=== PATIENT | female | born 1995 | race Caucasian/White ===

== ENCOUNTER 2017-04-12 08:22 | Day surgery (SDC) | payer BC, MEDICAID ==
[~2017-04-12 08:22] MED LIST: Acetaminophen TAB* 325 MG PO ONE; Buffered Lidocaine 0.9% SYRIN* 5 ML/SYR SYRINGE INTRADERM ONE; Dexamethasone IV* 4 MG/ML 1 ML (4 MG) IV SLOW PU ONE; Famotidine IV* 10 MG/ML 2 ML (20 mg) IV ONE; Scopolamine 1.5 mg* PATCH TRANSDERM ONE
[2017-04-12] MEDS ORDERED: Dexamethasone IV* 4 MG/ML 1 ML (4 MG) ONE (08:33)
[2017-04-12] MEDS ORDERED: Acetaminophen TAB* 325 MG ONE (08:33)
[2017-04-12] MEDS ORDERED: Scopolamine 1.5 mg* PATCH ONE (08:33)
[2017-04-12] MEDS ORDERED: Famotidine IV* 10 MG/ML 2 ML (20 mg) ONE (08:33)
[2017-04-12] MEDS ORDERED: Buffered Lidocaine 0.9% SYRIN* 5 ML/SYR SYRINGE ONE (08:33)
[2017-04-12] MEDS ORDERED: fentaNYL* 50 MCG/ML 2 ML VIAL (100 MCG VIAL) ONE (09:02)
[2017-04-12] MEDS ORDERED: Midazolam* 1 MG/ML 2 ML VIAL (2 MG) ONE (09:02)
[2017-04-12] MEDS ORDERED: Lidocaine 2% PF * 5 ML VIAL ONE (09:09)
[2017-04-12] MEDS ORDERED: Propofol* 10 MG/ML 20 ML BTL IV PUSH ONE (09:09)
[2017-04-12] MEDS ORDERED: Bacitracin OINTMENT* 1 TUBE ONE (10:42)
[2017-04-12] MEDS ORDERED: Oxymetazoline 0.05% NASAL SPR* 15 ML BTL ONE (10:42)
[2017-04-12] MEDS ORDERED: Lidocaine 1% MPF wEPI 200,000* 30 ML SDV ONE (10:42)
[2017-04-12] MEDS ORDERED: Lidocaine 4% TOPICAL* 50 ML TOP.SOLN ONE (10:42)
[2017-04-12] MEDS ORDERED: Ondansetron INJ* 2 MG/ML VIAL ONE (11:54)
[2017-04-12 12:41] VITALS: BP 129/68
--- NOTE | 2017-04-13 06:16 | OP ---
DATE OF OPERATION: 04/12/17 - [facility] DATE OF : 89 SURGEON: Matthew Taylor MD ANESTHESIOLOGIST: Polina Ramirez MD ANESTHESIA: General PRE-OP DIAGNOSIS: Septal deviation, turbinate hypertrophy. POST-OP DIAGNOSIS: Septal deviation, turbinate hypertrophy. OPERATIVE PROCEDURE: Nasal septoplasty and inferior turbinate reduction with outfracture. The debrider was used for the turbinate reductions performed in the submucosal plane. SPECIMENS: None. BLOOD LOSS: Minimal. DESCRIPTION OF PROCEDURE: The patient was taken to the operating room, placed in the supine position on the operating table, maintained with laryngeal mask airway anesthesia. Her nose was packed bilaterally with cottonoids impregnated with oxymetazoline and 4% lidocaine and then she was draped for the surgery. The packs were removed. She has a severe septal deviation to the right side with it touching the right inferior turbinate. The septum and inferior turbinates were injected with 1% lidocaine, 1:200,000 epinephrine. Hemitransfixion incision was made in the left anterior septum. Mucoperichondrial flap was raised. Bony cartilaginous junction opened. Contralateral posterior flap was raised. The freer knife was used to remove the cartilage posterior inferiorly. A big window was taken out where it was deviated. The spurring from the bony septum was removed and a buckle anteriorly in the anterior cartilage was opened and then trimmed, so they laid flat. The large piece of cartilage I removed was morselized, straightened and placed back into the mucoperichondrial pocket. Hemitransfixion incision was closed with 4-0 chromic and then a 4-0 gut quilting stitch was placed. Incisions were made in the anterior, inferior turbinates. The pockets were raised over the bone. The debrider was inserted. The submucosa was debrided and these were outfractured. Magnetic splints were smeared with bacitracin were placed into the nostrils and then sutured in place with a Prolene. The patient tolerated this well. No complications. Transferred to recovery in stable condition. [id number]/[facility] #: [id number] MTDD
[2017-04-15] MEDS ORDERED: Scopolamine PATCH Remove* 1 NOTE MISC PATCH OFF ONE (06:00)
== END 2017-04-12 13:10 | disposition home or self-care (01) ==
LOC: OR 08:22
PROVIDERS: ATTEND Otolaryngology
DX: J34.2 Deviated nasal septum (principal); J34.3 Hypertrophy of nasal turbinates; R09.81 Nasal congestion
CPT/HCPCS: 81025; A9270-GY; J1100; J2001; J2250; J2405; J2704; J3010

== ENCOUNTER 2018-04-16 10:32 | Emergency (ER) | payer BC, MEDICAID ==
[2018-04-16 13:55] VITALS: BP 133/75
--- NOTE | 2018-04-16 13:57 | UC ---
Throat Pain/Nasal Bryan HPI - HPI Summary HPI Summary: 23 y/o female presents to the urgent care c/o sore throat and fever since Saturday04/14/2018. Pain w/ swallowing is 8/10 associated w/ B/L ear pain and mild nasal congestion w/ clear discharge. Pt took Advil PO around 1300pm to alleviate symptoms. Pt denies fever, SOB, chest pain, rash, abdominal pain, N/V/ D. He as decrease appetite, but she has been drinking fluids. - History of Current Complaint Chief Complaint: UCGeneralIllness Stated Complaint: SORE THROAT EAR PAIN Time Seen by Provider: 04/16/18 13:24 Hx Obtained From: Patient Hx Last Menstrual Period: last week ?: No Onset/Duration: Gradual Onset, Lasting Days - 3 days, Still Present, Worse Since - today Severity: Moderate Pain Intensity: 8 Pain Scale Used: 0-10 Numeric Cough: None Associated Signs & Symptoms: Positive: Dysphagia, Nasal Discharge - clear. Negative: Drooling, Wheezing, Fever - Epiglottits Risk Factors Epiglottis Risk Factors: Negative - Allergies/Home Medications Allergies/Adverse Reactions: Allergies Allergy/AdvReac Type Severity Reaction Status Date / Time apples Allergy throat Uncoded 04/16/18 13:50 swells PMH/Surg Hx/FS Hx/Imm Hx Previously Healthy: Yes - Pt denies PMHX - Surgical History Surgical History: Yes Surgery Procedure, Year, and Place: tibial tumor, 2008, [facility] - Family History Known Family History: Positive: None - Pt denies FMHX - Social History Occupation: Employed Full-time Lives: With Family Alcohol Use: Rare Substance Use Type: None Smoking Status (MU): Never Smoked Tobacco Review of Systems All Other Systems Reviewed And Are Negative: Yes Constitutional: Positive: Fatigue Skin: Positive: Negative Eyes: Positive: Negative ENT: Positive: Sore Throat, Ear Ache - B/L ear pain, Nasal Discharge - clear Respiratory: Positive: Negative Cardiovascular: Positive: Negative Gastrointestinal: Positive: Negative Genitourinary: Positive: Negative Motor: Positive: Negative Neurovascular: Positive: Negative Musculoskeletal: Positive: Negative Neurological: Positive: Negative Psychological: Positive: Negative Is Patient Immunocompromised?: No Physical Exam - Summary Physical Exam Summary: VITAL SIGNS: Reviewed. GENERAL: Patient is a well developed and nourished female who is sitting comfortable in the examining table. Patient is not in any acute respiratory distress. HEAD AND FACE: No signs of trauma. No ecchymosis, hematomas or skull depressions. No sinus tenderness. EYES: PERRLA, EOMI x 2, No injected conjunctiva, no nystagmus. No photophobia. EARS: Hearing grossly intact. Ear canals and tympanic membranes are within normal limits. MOUTH: Positive pharynx with erythema, exudates, palatal petechiae. B/L tonsillar enlargement with exudate. Uvula in midline. NECK: Supple, trachea is midline, Positive anterior cervical lymphadenopathy, no JVD, no carotid bruit, no c-spine tenderness, neck with full ROM. No meningeal signs, no Kernig's or brudzinskis signs. CHEST: Symmetric, no tenderness at palpation LUNGS: Clear to auscultation bilaterally. No wheezing or crackles. CVS: Regular rate and rhythm, S1 and S2 present, no murmurs or gallops appreciated. ABDOMEN: Soft, non-tender. No signs of distention. No rebound no guarding, and no masses palpated. Bowel sounds are normal. EXTREMITIES: FROM in all major joints, no edema, no cyanosis or clubbing. NEURO: Alert and oriented x 3. No acute neurological deficits. Speech is normal and follows commands. SKIN: Dry and warm Triage Information Reviewed: Yes Vital Signs: Initial Vital Signs Temp 98.6 F 04/16/18 13:51 Pulse 99 04/16/18 13:51 Resp 18 04/16/18 13:51 BP 133/75 04/16/18 13:51 Pulse Ox 100 04/16/18 13:51 Throat Pain/Nasal Course/Dx - Course Course Of Treatment: 23 y/o female presents to the urgent care c/o sore throat and fever since Saturday04/14/2018. Pain w/ swallowing is 8/10 associated w/ B/L ear pain and mild nasal congestion w/ clear discharge. Pt took Advil PO around 1300pm to alleviate symptoms. Pt denies fever, SOB, chest pain, rash, abdominal pain, N/V/D. He as decrease appetite, but she has been drinking fluids. Hx obtained. Pt w/ pharyngitis on examination. Rapdi strep=positive. Strep pharyngitis. Rx Amoxicillin PO and Ibuprofen PO for pain and swelling. PT Advised on hand washing to avoid spreading. Also advised to rest, eat well and avoid strenuous exercise. If symptoms do not improve or worsen advised to return to the urgent care or f/u with her PCP for further evaluation and treatment. PT understood and agreed - Differential Dx/Diagnosis Differential Diagnosis/HQI/PQRI: Laryngitis, Mononucleosis, Otitis Media, Pharyngitis, Tonsillitis Provider Diagnosis: Strep sore throat Discharge - Sign-Out/Discharge Documenting (check all that apply): Patient Departure - D/c home All imaging exams completed and their final reports reviewed: No Studies - Discharge Plan Condition: Stable Disposition: HOME Prescriptions: Amoxicillin PO (*) [Amoxicillin 500 MG CAP*] 500 mg PO Q12H #20 cap Ibuprofen TAB* [Motrin TAB* 800 MG] 800 mg PO Q6H PRN #30 tab PRN Reason: Sore Throat Patient Education Materials: Strep Throat (ED) Forms: *Work Release Referrals: Tomasa Fletcher MD [Primary Care Provider] - 3 Days Additional Instructions: 1- Please take the full course of the antibiotic to avoid resistance. 2-Please take ibuprofen PO q6-8hrs prn as instructed after meals to alleviate pain and swelling. Increase fluid intake, eat well, rest and avoid strenuous exercise 3-If symptoms do not improve or worsen please return to the urgent care or f/u with your PCP in 3 days for further evaluation and treatment. - Billing Disposition and Condition Condition: STABLE Disposition: Home
== END 2018-04-16 14:22 | disposition home or self-care (01) ==
LOC: UCEAST 10:32
DX: J02.0 Streptococcal pharyngitis (principal)
CPT/HCPCS: 87651; 99212; G0463